=== PATIENT | male | born 1980 | race Caucasian/White ===

== ENCOUNTER 2021-02-15 07:54 | Emergency (ER) | payer OTHER ==
[~2021-02-15] VITALS: Ht 185.4 cm; Wt 85.3 kg
[2021-02-15] MEDS ORDERED: NOVOLIN 70100 UNIT/4 SC (08:12)
== END 2021-02-15 09:03 | disposition home or self-care (01) ==
LOC: ER 07:54
DX: S52.124A Nondisplaced fracture of head of right radius, initial encounter for closed fracture (principal); E11.9 Type 2 diabetes mellitus without complications; F17.210 Nicotine dependence, cigarettes, uncomplicated; Z79.4 Long term (current) use of insulin; W19.XXXA Unspecified fall, initial encounter
CPT/HCPCS: 29105; 73080; 99283-25

== ENCOUNTER 2024-11-22 09:11 | Observation (INO) | payer OTHER ==
[~2024-11-22] VITALS: Ht 188 cm; Wt 95.3 kg
[~2024-11-22 09:11] MED LIST: NOVOLIN 70100 UNIT/4 SC
[2024-11-22 09:35] LABS: pH Blood Venous 7.43 (7.34-7.37)
[2024-11-22 09:39] LABS: BASOPHILS ABSOLUTE AUTO 0.06 K/mm3 (0.00-0.23); BASOPHILS PERCENT AUTO 0 % (0-2); EOSINOPHILS ABSOLUTE AUTO 0.00 K/mm3 (0.00-0.68); EOSINOPHILS PERCENT AUTO 0 % (0-6); Hematocrit 49.4 % (37.0-53.0); Hemoglobin 16.7 g/dL (13.5-17.5); IMMATURE GRAN ABSOLUTE AUTO 0.05 K/mm3 (0.00-0.10); IMMATURE GRAN PERCENT AUTO 0 % (0-1); LYMPHOCYTES ABSOLUTE AUTO 0.96 K/mm3 (0.84-5.20); LYMPHOCYTES PERCENT AUTO 6 % (21-46); MONOCYTES ABSOLUTE AUTO 0.56 K/mm3 (0.16-1.47); MONOCYTES PERCENT AUTO 3 % (4-13); Mean Corpuscular HGB Conc 33.8 g/dL (31.5-36.5); Mean Corpuscular Volume 87 fL (80-100); NEUTROPHILS ABSOLUTE AUTO 15.41 K/mm3 (1.96-9.15); NEUTROPHILS PERCENT AUTO 90 % (41-73); NRBC ABSOLUTE 0.00 K/mm3 (0.00-0.02); NRBC Auto 0.0 /100 WBC (0.0-0.2); Platelet Count 327 K/mm3 (150-400); RDW Coefficient Variation 12.6 % (11.7-14.2); RDW Standard Deviation 40.9 fL (35.1-46.3)
[2024-11-22] MEDS ORDERED: Ondansetron HCl 2 MG / ML 2ML Vial IV ONE (09:55)
[2024-11-22 10:24] LABS: Alanine Aminotransfer (ALT/SGP 32.0 U/L (12-78); Albumin, Blood 4.3 g/dL (3.4-5.0); Albumin/Globulin Ratio 1.0 (0.8-1.8); Anion Gap 10.0 mmol/L (3-11); Aspartate Aminotrans (AST/SGOT 24.0 U/L (12-37); Bilirubin, Total 0.9 mg/dL (0.1-1.0); Blood Urea Nitrogen 19.0 mg/dL (8-24); CO2, Blood 26.0 mmol/L (21-32); Calcium, Blood 10.0 mg/dL (8.5-10.1); Chloride, Blood 101.0 mmol/L (98-108); Creatinine, Blood 1.43 mg/dL (0.60-1.20); Globulin, Blood 4.2 g/dL (2.2-4.0); Glucose, Blood 354.0 mg/dL (70-99); Potassium, Blood 4.1 mmol/L (3.5-5.5); Sodium, Blood 133.0 mmol/L (136-145); Total Protein, Blood 8.5 g/dL (6.4-8.2)
[2024-11-22 10:47] LABS: Prothrombin Time Results 12.5 Sec (9.7-11.5)
[2024-11-22] MEDS ORDERED: Haloperidol Lactate Inj. 5 MG/ML Injection IV ONE ×2 (10:55→12:20)
[2024-11-22] MEDS ORDERED: Metoclopramide HCl 5MG / ML 2ML Vial IV ONE (11:50)
[2024-11-22] MEDS ORDERED: NOVOLOG100 UNIT/2 SC (11:58)
[2024-11-22] MEDS ORDERED: INSULANI SC (11:58)
[2024-11-22] MEDS ORDERED: Pantoprazole Sodium 40 MG Injection IV ONE (12:20)
[2024-11-22] MEDS ORDERED: Ondansetron HCl 2 MG / ML 2ML Vial IV PRN (13:20)
[2024-11-22] MEDS ORDERED: Metoclopramide HCl 5MG / ML 2ML Vial IV PRN (13:20)
[2024-11-22] MEDS ORDERED: Insulin Regular 100 Unit/ML 1ML Dose IV ONE (14:00)
[2024-11-22] MEDS ORDERED: Insulin NPH 100 Unit / ML 10ML Vial SC ONE (14:00)
[2024-11-22 15:54] VITALS: BP 120/71
--- NOTE | 2024-11-22 16:02 | NUR ---
ER ADMIT. PT SETTLED IN ROOM. VEWS SCORE OF 4. TEMP 99.6, SINUS TACH 135, RESPIRATIONS 20-30, O2 91% R/A. PT SLEEPY, RESPONDS TO PHYSICAL STIMULI. DR. AARON NOTIFIED, AWAITING ORDERS.
[2024-11-22] MEDS ORDERED: LOSA25 PO (16:22)
[2024-11-22] MEDS ORDERED: Pantoprazole Sodium 40 MG Injection IV SCH (16:30)
--- NOTE | 2024-11-22 16:52 | NUR ---
MD AT BEDSIDE TO EVALUATE PT
[2024-11-22 17:22] LABS: Anion Gap 13.0 mmol/L (3-11); Blood Urea Nitrogen 24.0 mg/dL (8-24); CO2, Blood 27.0 mmol/L (21-32); Calcium, Blood 9.4 mg/dL (8.5-10.1); Chloride, Blood 101.0 mmol/L (98-108); Creatinine, Blood 1.57 mg/dL (0.60-1.20); Glucose, Blood 299.0 mg/dL (70-99); Potassium, Blood 3.8 mmol/L (3.5-5.5); Sodium, Blood 137.0 mmol/L (136-145)
[2024-11-22] MEDS ORDERED: GLYCERIN 30 ML LIQUID MM PRN ×2 (17:35→17:50)
[2024-11-22] MEDS ORDERED: Insulin Regular 100 UNIT/ML 10ML Vial SC SCH (18:00)
[2024-11-22] MEDS ORDERED: DEXTROMETHORPHAN/BENZOCAINE 1 EACH LOZENGE MT PRN (18:30)
--- NOTE | 2024-11-22 18:30 | NUR ---
SHIFT SUMMARY: PATIENT HAD IMAGING DONE EARLIER THIS DAY. CT ORDERED PER RESIDENT AND AWAITING RESULTS AT THIS TIME. PATIENT REMAINS NPO D/T S/S OF ASPIRATION. PALLIATIVE CONSULT IN PLACE. TUBE FEEDING STARTED AT 355ML/HR AND 100ML FLUSH BEFORE AND POST FEEDINGS. PATIENT HAD 3 EPISODES OF V-TACH THIS SHIFT. SEE NOTES FOR MORE DETAILS. DR. JOSEPH NOTIFIED ALONGSIDE RESIDENTS. PATIENT REMAINS A+O X3-4. PLAN OF CARE ONGOING AT THIS TIME. WILL CONTINUE TO MONITOR.
[2024-11-22 19:44] VITALS: BP 116/71
[2024-11-22] MEDS ORDERED: Insulin Glargine-Yfgn 100 Unit/mL 3 ML SYR SC SCH (21:00)
[2024-11-22 23:56] VITALS: BP 106/58
[2024-11-23 03:37] VITALS: BP 107/62
--- NOTE | 2024-11-23 04:47 | NUR ---
SHIFT SUMMARY- PT A/OX4- SBA WITH AMBULATION. VITAL SIGNS REMAINED STABLE THROUGHOUT THE NIGHT. TELE IN PLACE- SINUS TACH 90'S-120, NO REPORT OF CHEST PAIN OR PRESSURE. ONE EPISODE OF NAUSEA, TREATED WITH ZOFRAN PER EMAR. NO EMESIS THIS SHIFT. CONTINUING TO CHECK CBG'S Q6H AND TREAT PER EMAR. UTILIZING CALL LIGHT APPROPRIATELY, BED IN LOWEST POSITION, WILL REPORT TO ONCOMING RN.
[2024-11-23 06:07] LABS: BASOPHILS ABSOLUTE AUTO 0.05 K/mm3 (0.00-0.23); BASOPHILS PERCENT AUTO 0 % (0-2); EOSINOPHILS ABSOLUTE AUTO 0.00 K/mm3 (0.00-0.68); EOSINOPHILS PERCENT AUTO 0 % (0-6); Hematocrit 38.2 % (37.0-53.0); Hemoglobin 12.7 g/dL (13.5-17.5); IMMATURE GRAN ABSOLUTE AUTO 0.08 K/mm3 (0.00-0.10); IMMATURE GRAN PERCENT AUTO 1 % (0-1); LYMPHOCYTES ABSOLUTE AUTO 1.64 K/mm3 (0.84-5.20); LYMPHOCYTES PERCENT AUTO 9 % (21-46); MONOCYTES ABSOLUTE AUTO 1.24 K/mm3 (0.16-1.47); MONOCYTES PERCENT AUTO 7 % (4-13); Mean Corpuscular HGB Conc 33.2 g/dL (31.5-36.5); Mean Corpuscular Volume 89 fL (80-100); NEUTROPHILS ABSOLUTE AUTO 14.53 K/mm3 (1.96-9.15); NEUTROPHILS PERCENT AUTO 83 % (41-73); NRBC ABSOLUTE 0.00 K/mm3 (0.00-0.02); NRBC Auto 0.0 /100 WBC (0.0-0.2); Platelet Count 250 K/mm3 (150-400); RDW Coefficient Variation 13.2 % (11.7-14.2); RDW Standard Deviation 42.8 fL (35.1-46.3)
[2024-11-23 06:49] LABS: Alanine Aminotransfer (ALT/SGP 22.0 U/L (12-78); Albumin, Blood 3.1 g/dL (3.4-5.0); Albumin/Globulin Ratio 1.0 (0.8-1.8); Anion Gap 10.0 mmol/L (3-11); Aspartate Aminotrans (AST/SGOT 14.0 U/L (12-37); Bilirubin, Total 0.7 mg/dL (0.1-1.0); Blood Urea Nitrogen 27.0 mg/dL (8-24); CO2, Blood 28.0 mmol/L (21-32); Calcium, Blood 8.4 mg/dL (8.5-10.1); Chloride, Blood 104.0 mmol/L (98-108); Creatinine, Blood 1.44 mg/dL (0.60-1.20); Globulin, Blood 3.0 g/dL (2.2-4.0); Glucose, Blood 284.0 mg/dL (70-99); Potassium, Blood 4.1 mmol/L (3.5-5.5); Sodium, Blood 138.0 mmol/L (136-145)
[2024-11-23 06:51] LABS: Total Protein, Blood 6.1 g/dL (6.4-8.2)
[2024-11-23 07:04] VITALS: BP 108/62
[2024-11-23] MEDS ORDERED: Insulin Glargine-Yfgn 100 Unit/mL 3 ML SYR SC SCH ×2 (08:00→09:00)
[2024-11-23] MEDS ORDERED: Enoxaparin 40 MG/0.4 ML SYR SC SCH (09:00)
[2024-11-23 11:12] LABS: BASOPHILS ABSOLUTE AUTO 0.04 K/mm3 (0.00-0.23); BASOPHILS PERCENT AUTO 0 % (0-2); EOSINOPHILS ABSOLUTE AUTO 0.00 K/mm3 (0.00-0.68); EOSINOPHILS PERCENT AUTO 0 % (0-6); Hematocrit 38.1 % (37.0-53.0); Hemoglobin 12.6 g/dL (13.5-17.5); IMMATURE GRAN ABSOLUTE AUTO 0.09 K/mm3 (0.00-0.10); IMMATURE GRAN PERCENT AUTO 1 % (0-1); LYMPHOCYTES ABSOLUTE AUTO 1.48 K/mm3 (0.84-5.20); LYMPHOCYTES PERCENT AUTO 9 % (21-46); MONOCYTES ABSOLUTE AUTO 0.99 K/mm3 (0.16-1.47); MONOCYTES PERCENT AUTO 6 % (4-13); Mean Corpuscular HGB Conc 33.1 g/dL (31.5-36.5); Mean Corpuscular Volume 90 fL (80-100); NEUTROPHILS ABSOLUTE AUTO 14.82 K/mm3 (1.96-9.15); NEUTROPHILS PERCENT AUTO 85 % (41-73); NRBC ABSOLUTE 0.00 K/mm3 (0.00-0.02); NRBC Auto 0.0 /100 WBC (0.0-0.2); Platelet Count 236 K/mm3 (150-400); RDW Coefficient Variation 13.1 % (11.7-14.2); RDW Standard Deviation 43.1 fL (35.1-46.3)
[2024-11-23] MEDS ORDERED: Insulin Regular 100 UNIT/ML 10ML Vial SC SCH (12:00)
[2024-11-23 12:36] VITALS: BP 122/81
[2024-11-23 16:03] VITALS: BP 111/64
--- NOTE | 2024-11-23 17:48 | NUR ---
End of shift summary: Pt is alert and oriented x4; pleasant and cooperative with care. Pt denies CP, SOB, N/V/D, or pain this shift. Pt had abdominal CT completed today per orders. IV fluids discontinued after last bag completed. Pt medications administered per EMAR. Pt independent in room to BR. Pt now tolerating Full Liquid diet. Pt utilizing call light appropriately; call light within reach and bed in lowest position. Pt with telemetry in place and HR NSR/NS tachycardia. Will continue to montior until next shift nurse arrives and report given.
[2024-11-23 20:30] VITALS: BP 118/85
[2024-11-24 00:04] VITALS: BP 137/77
[2024-11-24 03:48] VITALS: BP 137/77
[2024-11-24 05:38] LABS: BASOPHILS ABSOLUTE AUTO 0.03 K/mm3 (0.00-0.23); BASOPHILS PERCENT AUTO 0 % (0-2); EOSINOPHILS ABSOLUTE AUTO 0.00 K/mm3 (0.00-0.68); EOSINOPHILS PERCENT AUTO 0 % (0-6); Hematocrit 37.8 % (37.0-53.0); Hemoglobin 12.9 g/dL (13.5-17.5); IMMATURE GRAN ABSOLUTE AUTO 0.08 K/mm3 (0.00-0.10); IMMATURE GRAN PERCENT AUTO 1 % (0-1); LYMPHOCYTES ABSOLUTE AUTO 1.25 K/mm3 (0.84-5.20); LYMPHOCYTES PERCENT AUTO 10 % (21-46); MONOCYTES ABSOLUTE AUTO 0.60 K/mm3 (0.16-1.47); MONOCYTES PERCENT AUTO 5 % (4-13); Mean Corpuscular HGB Conc 34.1 g/dL (31.5-36.5); Mean Corpuscular Volume 88 fL (80-100); NEUTROPHILS ABSOLUTE AUTO 10.84 K/mm3 (1.96-9.15); NEUTROPHILS PERCENT AUTO 85 % (41-73); NRBC ABSOLUTE 0.00 K/mm3 (0.00-0.02); NRBC Auto 0.0 /100 WBC (0.0-0.2); Platelet Count 236 K/mm3 (150-400); RDW Coefficient Variation 12.4 % (11.7-14.2); RDW Standard Deviation 40.4 fL (35.1-46.3)
--- NOTE | 2024-11-24 06:07 | NUR ---
Shift Summary No acute changes. Blood glucose at 0000 was 147, no insulin given at that time per sliding scale. Pt slept well t/o most of the night. AOx4, independent in the room, VSS.
[2024-11-24 06:15] LABS: Alanine Aminotransfer (ALT/SGP 25.0 U/L (12-78); Albumin, Blood 2.9 g/dL (3.4-5.0); Albumin/Globulin Ratio 0.9 (0.8-1.8); Anion Gap 11.0 mmol/L (3-11); Aspartate Aminotrans (AST/SGOT 30.0 U/L (12-37); Bilirubin, Total 0.6 mg/dL (0.1-1.0); Blood Urea Nitrogen 19.0 mg/dL (8-24); CO2, Blood 25.0 mmol/L (21-32); Calcium, Blood 8.0 mg/dL (8.5-10.1); Chloride, Blood 105.0 mmol/L (98-108); Creatinine, Blood 1.04 mg/dL (0.60-1.20); Globulin, Blood 3.4 g/dL (2.2-4.0); Glucose, Blood 259.0 mg/dL (70-99); Potassium, Blood 4.0 mmol/L (3.5-5.5); Sodium, Blood 137.0 mmol/L (136-145); Total Protein, Blood 6.3 g/dL (6.4-8.2)
[2024-11-24 07:39] VITALS: BP 119/80
--- NOTE | 2024-11-24 11:31 | NUR ---
DISCHARGED TO HOME. PT DECLINED WHEELCHAIR TRANSPORT OUT. SELF AMBULATED OUT
--- NOTE | 2024-11-24 11:58 | NUR ---
SHIFT/DISCHARGE SUMMARY: PATIENT A/OX4, PLEASANT AND COOPERATIVE c CARE. PATIENT DENIES CP/PRESSURE, SOB, N/V AND DIZZINESS. PATIENT WAS ON TELE, SB HR IN THE MID 50'S BPM. PATIENT ON CC DIET, TOLERATING DIET WELL, NO NAUSEA OR VOMITING THIS SHIFT. PATIENT RECEIVED SCHEDULED MEDS PER EMAR. VITAL SIGNS REVIEWED. PIV DC'D BY LUIZ KAYE. PATIENT DISCHARGE HOME. DISCHARGE INSTRUCTIONS PACKET GIVEN TO PATIENT. PATIENT EDUCATED ON ADMITTING DX'S OF INTRACTABLE N/V, TX, SELF CARE AND TO F/U c PCP. ;PATIENT VERBALIZED UNDERSTANDING AND NO FURTHER QUESTIONS. PATIENT HAS HAD NO NEW RX AND TO RESUME HOME MEDS PER ORDER. ALL PERSONAL BELONGINGS WERE SENT c THE PATIENT. PATIENT DECLINED WC RIDE, AMBULATES HIMSELF ACCOMPANIED BY FAMILY AND LEFT AT 1131 PER MARISELA LATIF NURSE.
== END 2024-11-24 11:40 | disposition home or self-care (01) ==
LOC: ER 09:11 → MEDS 09:12
PROVIDERS: Student in an Organized Health Care Education/Training Program; ADMIT Internal Medicine
DX: R11.2 Nausea with vomiting, unspecified (principal); N17.9 Acute kidney failure, unspecified; R65.10 Systemic inflammatory response syndrome (SIRS) of non-infectious origin without acute organ dysfunction; E10.9 Type 1 diabetes mellitus without complications; R00.0 Tachycardia, unspecified; D72.829 Elevated white blood cell count, unspecified; I10 Essential (primary) hypertension; K21.9 Gastro-esophageal reflux disease without esophagitis; F17.210 Nicotine dependence, cigarettes, uncomplicated; K59.00 Constipation, unspecified; K86.89 Other specified diseases of pancreas; K76.0 Fatty (change of) liver, not elsewhere classified; Z79.4 Long term (current) use of insulin
CPT/HCPCS: 36415; 74176; 80048; 80053; 82010; 82803; 82947; 84443; 85025; 85610; 85730; 93005; 93010; 94762; 96361; 96372; 96374; 96375; 96376; 99284-25; A9270; G0378; J1630; J1650; J1815; J2405; J2470; J2765; J7120